=== PATIENT | female | born 1990 | race Caucasian/White ===

== ENCOUNTER 2016-09-23 04:22 | Emergency (ER) ==
[2016-09-23 04:41] VITALS: BP 110/76; TEMP 98.7; BMI 30.2
[2016-09-23] MEDS ORDERED: PEDIAPRED 5 MG/5 ML SOL PO STA (04:57)
--- NOTE | 2016-09-23 05:01 | ED.PDOC ---
General ED Provider: Dr. IDALIA DUCKWORTH Chief Complaint: Sore Throat Stated Complaint: sore throat, ears full, sinus drainage. Time Seen by Physician: 05:00 Mode of Arrival: Walk-In Information Source: Patient, Family Primary Care Provider: STEVEN SHEIKH Nursing and Triage Documentation Reviewed and Agree: Yes EENT Complaint Exam - Throat Complaint/Exam Symptoms Are: Still present Timimg: Constant Initial Severity: Moderate Current Severity: Moderate Aggravating: Reports: Eating Alleviating: Reports: None Associated Signs and Symptoms: Reports: Fever, Dysphagia, Sinus discomfort, Nasal congestion Uvula Midline: Yes Ellyn-tonsillar Fluctuence: No Scarlatinaform Rash Present: No Stridor Present: No Sinus Tenderness Present: No Tonsillar Hypertrophy Present: No Tonsillar Exudate Present: No Ellyn-tonsillar Swelling Present: No Adenopathy Present: Yes Splenomegaly Present: No Differential Diagnoses: Pharyngitis, URI Review of Systems - Review Of Systems Constitutional: Reports: Malaise, Weakness Eyes: Reports: No symptoms Ears, Nose, Mouth, Throat: Reports: Ear pain, Nose discharge, Throat pain Respiratory: Reports: No symptoms Cardiac: Reports: No symptoms GI: Reports: No symptoms : Reports: No symptoms Musculoskeletal: Reports: No symptoms Skin: Reports: No symptoms Neurological: Reports: No symptoms Endocrine: Reports: No symptoms Hematologic/Lymphatic: Reports: No symptoms All Other Systems: Reviewed and Negative Past Medical History - Past Medical History Previously Healthy: Yes Endocrine: Reports: None Cardiovascular: Reports: None Respiratory: Reports: None Hematological: Reports: None Gastrointestinal: Reports: None Genitourinary: Reports: None Neuro/Psych: Reports: None Musculoskeletal: Reports: None Cancer: Reports: None Last Menstrual Period: never had one - Surgical History General Surgical History: Reports: None - Family History Family History: Reports: None - Social History Smoking Status: Never smoker Hx Substance Use: No Alcohol Screening: None - Immunizations Tetanus Shot up to Date: Yes Physical Exam - Physical Exam Appearance: Ill-appearing, Obese Eyes: LUIS MANUEL, EOMI, Conjunctiva clear ENT: Ears normal (left ear wax.), Rhinorrhea, Erythema Respiratory: Airway patent, Breath sounds clear, Breath sounds equal, Respirations nonlabored Cardiovascular: RRR, Pulses normal, No rub, No murmur GI/: Soft, Nontender, No masses, Bowel sounds normal, No Organomegaly Musculoskeletal: Normal strength, ROM intact, No edema, No calf tenderness Skin: Warm, Dry, Normal color Neurological: Sensation intact, Motor intact, Reflexes intact, Cranial nerves intact, Alert, Oriented Psychiatric: Affect appropriate, Mood appropriate Critical Care Note - Critical Care Note Total Time (mins): 0 Course - Course Orders, Labs, Meds: Orders Category Date Time Status STREP SCREEN Stat LAB 09/23/16 04:57 Uncollected Prednisolone Sod Phosphate [Pediapred 5 mg/5 ml Petra] MEDS 09/23/16 04:57 Stat 10 mg PO ONCE STA Medications Generic Name Dose Route Start Last Admin Trade Name Freq PRN Reason Stop Dose Admin Prednisolone Sodium Phosphate 10 mg 09/23/16 04:57 Pediapred 5 Mg/5 Ml Petra PO 09/23/16 04:58 ONCE STA Vital Signs: Temp Pulse Resp BP Pulse Ox 09/23/16 04:25 98.7 F 94 H 20 110/76 99 Departure - Departure Time of Disposition: 05:05 Disposition: HOME SELF-CARE Discharge Problem: Pharyngitis Qualifiers: Pharyngitis/tonsillitis etiology: other specified organisms Qualifier Code: ( J02.8) Acute pharyngitis due to other specified organisms Instructions: Pharyngitis (ED) Condition: Stable Pt referred to PMD for follow-up: No Additional Instructions: INCREASE HYDRATION TYLEOL COLD OTC MEDICATION ALONG WITH ANTIBIOTICS TAKE MEDICATIONS WITH FOOD. Prescriptions: Amoxicillin/Potassium Clav [Augmentin 500-125 mg Tab] 1 tab PO Q12HR #20 tablet Prednisone 10 mg PO BIDWM #14 tablet Allergies/Adverse Reactions: Allergies No Known Allergies Allergy (Unverified 09/23/16 04:40) Home Medications: Ambulatory Orders Amoxicillin/Potassium Clav [Augmentin 500-125 mg Tab] 1 tab PO Q12HR #20 tablet 09/23/16 Prednisone 10 mg PO BIDWM #14 tablet 09/23/16 Disposition Discussed With: Patient, Family
== END 2016-09-23 05:13 | disposition home or self-care (01) ==
LOC: ED 04:22
DX: J02.9 Acute pharyngitis, unspecified (principal)
CPT/HCPCS: 87651; 87880; 99283

== ENCOUNTER 2017-07-31 10:39 | Emergency (ER) ==
[2017-07-31 10:45] VITALS: BP 124/86; TEMP 96.4; BMI 31.4
--- NOTE | 2017-07-31 11:19 | ED.PDOC ---
General ED Provider: Dr. BRITT ROJAS Chief Complaint: Non-specific Complaint Stated Complaint: I can't Hear. Has had coughing and congested for several days. Has hx of previous ear problems and surgery by Dr Morse in [place]. 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 Time Seen by Physician: 11:45 Mode of Arrival: Walk-In Information Source: Patient Exam Limitations: No limitations Primary Care Provider: STEVEN SHEIKH Referred to ED by: PCP Nursing and Triage Documentation Reviewed and Agree: Yes Reviewed sepsis parameters & appropriate labs ordered?: Yes System Inflammatory Response Syndrome: Not Applicable Sepsis Protocol: For patient's 13 years and over: Temp is 96.8 and below OR 101 and greater Pulse >90 BPM Resp >20/minute Acutely Altered Mental Status Are patient's symptoms suggestive of a new infection, such as: -Pneumonia -Skin, Soft Tissue -Endocarditis -UTI -Bone, Joint Infection -Implantable Device -Acute Abdominal Infection -Wound Infection -Meningitis -Blood Stream Catheter Infection -Unknown System Inflammatory Response Syndrome: Not Applicable Review of Systems - Review Of Systems Constitutional: Reports: No symptoms Eyes: Reports: No symptoms Ears, Nose, Mouth, Throat: Reports: Ear pain (Decreased hearing) Respiratory: Reports: No symptoms, Other (congestion) Cardiac: Reports: No symptoms GI: Reports: No symptoms : Reports: No symptoms Musculoskeletal: Reports: No symptoms Skin: Reports: No symptoms Neurological: Reports: No symptoms Endocrine: Reports: No symptoms Hematologic/Lymphatic: Reports: No symptoms All Other Systems: Other (Previouls ear PE tubes and ear surgery) Past Medical History - Past Medical History Previously Healthy: Yes Endocrine: Reports: None Cardiovascular: Reports: None Respiratory: Reports: None Hematological: Reports: None Gastrointestinal: Reports: None Genitourinary: Reports: None Neuro/Psych: Reports: None Musculoskeletal: Reports: None Cancer: Reports: None Last Menstrual Period: N/A - Surgical History General Surgical History: Reports: None - Family History Family History: Reports: None - Social History Smoking Status: Never smoker Hx Substance Use: No Alcohol Screening: None - Immunizations Tetanus Shot up to Date: Yes Physical Exam - Physical Exam Appearance: Well-appearing (Small pilar cyst in mid scalp region approx /non tender ) Ill-appearing: None Pain Distress: None Eyes: LUIS MANUEL, EOMI, Conjunctiva clear ENT: TMs Occluded (Ear TM appearance slightly distorted/Cerumen appears to be occluding EACs) Neck: Supple Respiratory: Airway patent, Breath sounds clear, Breath sounds equal Cardiovascular: RRR, Pulses normal, No rub, No murmur GI/: Soft, Nontender, No masses, Bowel sounds normal Musculoskeletal: Normal strength, ROM intact, No edema Skin: Warm, Dry, Normal color, Pale Neurological: Sensation intact, Motor intact Psychiatric: Affect appropriate, Mood appropriate Procedures - Cerumen Removal Location: Bilateral ears Instrument Used: Otoscope, Syringe Irrigation Used: Yes Results: Wax Re-Evaluation - Re-Evaluation Time of Re-Evaluation: 13:00 Additional Comments: Results reviewed - Re-Evaluation Time of Re-Evaluation: 15:15 Status: Improved Vital Signs Stable: Yes Appearance: NAD Skin: Warm and Dry Neuro: Alert and Oriented X3 CV: RRR (Ears flushed with warm water with large amount of cerumen irrigated from LT EAC/ small amount Rt EAC after which hearing was improved) Critical Care Note - Critical Care Note Total Time (mins): 0 Course - Course Orders, Labs, Meds: Lab Review 07/31/17 12:20 Influenza A (Rapid) Negative by naat Influenza B (Rapid) Negative by naat Orders Category Date Time Status FLU A & B MOLECULAR [FLU A/B MOLECULAR] Stat LAB 07/31/17 12:20 Completed MOLECULAR GROUP A STREP Stat LAB 07/31/17 12:20 Completed Vital Signs: Temp Pulse Resp BP Pulse Ox 07/31/17 10:41 96.4 F L 94 H 20 124/86 98 Departure - Departure Time of Disposition: 15:40 Disposition: HOME SELF-CARE Discharge Problem: Hearing abnormally acute, Ceruminosis, Pilar cysts Instructions: Cerumen Impaction (ED) Condition: Good Pt referred to PMD for follow-up: Yes IPMP verified?: No Additional Instructions: Follow up with PCP for re evaluation of ears and small cyst on scalp Allergies/Adverse Reactions: Allergies No Known Allergies Allergy (Verified 07/31/17 10:50) Home Medications: Ambulatory Orders 1 [No Reported Medications] 07/31/17 Disposition Discussed With: Patient, Family
== END 2017-07-31 16:01 | disposition home or self-care (01) ==
LOC: ED 10:39
DX: L72.11 Pilar cyst (principal); H61.23 Impacted cerumen, bilateral; H91.90 Unspecified hearing loss, unspecified ear; R05 Cough
CPT/HCPCS: 87502; 87651; 99282